=== PATIENT | female | born 1965 | race Caucasian/White ===

== ENCOUNTER 2023-06-23 07:03 | Outpatient (CLI) | payer MEDICARE, SELFPAY | END 2023-06-23 23:59 | LOC: LAB.DROPOF 07-01 07:04 | PROVIDERS: PCP Family Medicine; Visit Provider Family Medicine | DX: I10 Essential (primary) hypertension (principal) | CPT/HCPCS: 80053; 80061; 83036; 84443; 85025 ==

== ENCOUNTER 2023-06-23 13:22 | Outpatient (CLI) | payer MEDICARE, SELFPAY ==
--- NOTE | 2023-06-23 13:23 | CA_ITS ---
FINAL REPORT TECHNIQUE: Color Doppler, duplex Doppler and compression sonography of the left lower extremity deep venous systems was performed. CLINICAL HISTORY: Tender,swollen, pain LLExt FINDINGS: There is no evidence of deep venous thrombosis from the level of the groin to the calf. The veins are patent and compressible. IMPRESSION: No evidence of deep venous thrombosis left lower extremity. Reviewed, Interpreted and Dictated by Felix Shearer III, MD Transcribed by Alejandra Watson Authenticated and [facility]
[2023-06-23 18:13] LABS: Basophils # 0.1 K/mm3 (0-0.2); Basophils % 0.8 % (0.1-2.0); Eosinophils # 0.3 K/mm3 (0.0-0.4); Eosinophils % 2.5 % (0.1-12.0); Hematocrit 34.7 % (37.0-47.0); Hemoglobin 10.8 g/dL (12.2-16.2); Lymphocytes # 2.9 K/mm3 (0.7-4.5); Lymphocytes % 27.1 % (10-50); Mean Corpuscular Hemoglobin 24.5 pg (27.0-31.2); Mean Corpuscular Volume 79.1 fl (81-99); Mean Platelet Volume 9.9 fl (7.4-10.4); Monocytes # 0.4 K/mm3 (0.1-1.0); Monocytes % 3.5 % (1.7-9.3); Neutrophils % 66.1 % (37.0-80.0); Platelet Count 252 K/mm3 (142-424); Red Blood Count 4.39 M/mm3 (4.20-5.40); Red Cell Distribution Width 17.2 % (11.5-17.5); White Blood Count 10.6 K/mm3 (4.8-10.8)
[2023-06-23 18:46] LABS: Alanine Aminotransferase 15 U/L (12-78); Albumin Level 3.8 g/dl (3.5-5.0); Albumin/Globulin Ratio 1.2 (1.1-1.8); Alkaline Phosphatase 139 U/L (38-126); Anion Gap 12.4 mEq/L (5-15); Aspartate Amino Transferase 20 U/L (14-36); Bilirubin,Total 0.6 mg/dl (0.2-1.3); Blood Urea Nitrogen 26 mg/dl (7-17); Calcium 8.9 mg/dl (8.4-10.2); Carbon Dioxide 23 mmol/L (22.0-30.0); Chloride 108 mmol/L (98-107); Chol/HDL Ratio 3.8 (1-3.5); Cholesterol 105 mg/dl (140-200); Estimated Glomerular Filt Rate 39 ml/min (>60); GFR (African American) 47 ML/MIN (>60); Globulin 3.1 g/dL (1.3-3.2); Glucose 95 mg/dl (74-100); HDL Cholesterol 28 mg/dl (40-60); Potassium 4.4 mmoL/L (3.5-5.1); Sodium 139 mmol/L (136-145); Total Protein,Serum 6.9 g/dl (6.3-8.2); Triglycerides 138 mg/dl (30-150); VLDL Cholesterol 28 mg/dL (0-40)
[2023-06-23 19:19] LABS: Thyroid Stimulating Hormone 1.96 uIU/mL (0.465-4.68)
[2023-06-23 20:20] LABS: Hemoglobin A1C 5.7 % (4.0-6.0)
== END 2023-06-23 23:59 ==
PROVIDERS: PCP Family Medicine; Visit Provider Family Medicine
DX: M79.605 Pain in left leg (principal); I10 Essential (primary) hypertension; E11.621 Type 2 diabetes mellitus with foot ulcer; Z79.899 Other long term (current) drug therapy
CPT/HCPCS: 80053; 80061; 83036; 84443; 85025; 93971

== ENCOUNTER 2023-07-07 18:00 | Outpatient (CLI) | payer MEDICARE, SELFPAY ==
[2023-07-07 19:57] LABS: Iron 52 ug/dL (37-170)
[2023-07-07 20:08] LABS: Total Iron Binding Capacity 286 ug/dL (265-497)
== END 2023-07-07 23:59 | disposition home or self-care (01) ==
LOC: LAB.DROPOF 07-08 10:02
PROVIDERS: PCP Family Medicine; Visit Provider Family Medicine
DX: R53.83 Other fatigue (principal); D64.9 Anemia, unspecified
CPT/HCPCS: 83540; 83550

== ENCOUNTER 2023-07-17 10:34 | Outpatient (CLI) | payer MEDICARE, SELFPAY ==
[2023-07-17 10:49] LABS: MANUAL DIFFERENTIAL MANUAL DIFFERENTIAL (MANUAL DIFF)
[2023-07-17 11:17] LABS: Basophils # 0.1 K/mm3 (0-0.2); Eosinophils # 0.2 K/mm3 (0.0-0.4); Eosinophils % 2.7 % (0.1-12.0); Hematocrit 33.1 % (37.0-47.0); Hemoglobin 10.6 g/dL (12.2-16.2); Lymphocytes # 2.1 K/mm3 (0.7-4.5); Lymphocytes % 26.8 % (10-50); Mean Corpuscular HGB Conc 32.2 g/dL (31.8-35.4); Mean Corpuscular Hemoglobin 24.3 pg (27.0-31.2); Mean Corpuscular Volume 75.5 fl (81-99); Mean Platelet Volume 8.5 fl (7.4-10.4); Monocytes # 0.3 K/mm3 (0.1-1.0); Monocytes % 3.5 % (1.7-9.3); Neutrophils # 5.2 K/mm3 (1.8-7.8); Neutrophils % 65.9 % (37.0-80.0); Platelet Count 245 K/mm3 (142-424); Red Blood Count 4.38 M/mm3 (4.20-5.40); Red Cell Distribution Width 17.5 % (11.5-17.5); White Blood Count 7.9 K/mm3 (4.8-10.8)
[2023-07-17 11:20] LABS: INR 1.06 (0.9-1.1); Prothrombin Time 11.4 seconds (10.1-12.5)
[2023-07-17 11:39] LABS: Chloride 111 mmol/L (98-107); Potassium 4.3 mmoL/L (3.5-5.1); Sodium 140 mmol/L (136-145)
[2023-07-17 11:41] LABS: Alanine Aminotransferase 16 U/L (12-78); Aspartate Amino Transferase 23 U/L (14-36); Blood Urea Nitrogen 23 mg/dl (7-17); Estimated Glomerular Filt Rate 39 ml/min (>60); GFR (African American) 47 ML/MIN (>60)
[2023-07-17 11:42] LABS: Albumin Level 3.7 g/dl (3.5-5.0); Albumin/Globulin Ratio 1.2 (1.1-1.8); Alkaline Phosphatase 138 U/L (38-126); Anion Gap 10.3 mEq/L (5-15); Bilirubin,Total 0.7 mg/dl (0.2-1.3); Calcium 9.2 mg/dl (8.4-10.2); Carbon Dioxide 23 mmol/L (22.0-30.0); Globulin 3.1 g/dL (1.3-3.2); Glucose 152 mg/dl (74-100); Iron 46 ug/dL (37-170); Total Protein,Serum 6.8 g/dl (6.3-8.2)
[2023-07-17 11:52] LABS: Total Iron Binding Capacity 300 ug/dL (265-497)
[2023-07-17 12:07] LABS: Gamma Glutamyl Transpeptidase 32 U/L (12-43)
[2023-07-17 12:18] LABS: Ferritin 23.3 ng/ml (11.1-264)
[2023-07-17 16:36] LABS: Eosinophils % 1 % (0-3); Lymphocytes % 28 % (10-50); Monocytes % 1 % (2-9); Neutrophils % 69 % (42-76); Total Cells Counted 100
[2023-07-17 16:37] LABS: Hypochromasia 1+; Microcytosis 1+; Platelet Estimate Normal
[2023-07-18 11:33] LABS: Alpha-1-Antitrypsin 166 mg/dL (101-187); CA 19-9 4 U/mL (0-35); Ceruloplasmin 31.3 mg/dL (19.0-39.0); HBsAg Screen Negative (Negative); HCV Ab Non Reactive (Non Reactive); Hep A Ab, IGM Negative (Negative); Hep B Core Ab, IgM Negative (Negative)
[2023-07-18 14:54] LABS: Endomysial IgA Antibody Negative (Negative); Liver-Kidney Microsomal Ab 1.3 Units (0.0-20.0)
[2023-07-18 15:34] LABS: Actin (Smooth Muscle) Antibody 14 Units (0-19); Deamidated Gliadin Abs, IgA 8 units (0-19); Deamidated Gliadin Abs, IgG 5 units (0-19); Mitochondrial (M2) Antibody <20.0 Units (0.0-20.0); Tissue Transglutaminase IgA Ab <2 U/mL (0-3); Tissue Transglutaminase IgG Ab <2 U/mL (0-5)
[2023-07-23 09:13] LABS: Reticulin IgA Antibody Negative titer (Neg:<1:2.5)
== END 2023-07-17 23:59 | disposition home or self-care (01) ==
LOC: LAB 10:36
PROVIDERS: PCP Family Medicine; Visit Provider Nurse Practitioner
DX: N18.30 Chronic kidney disease, stage 3 unspecified (principal); K74.60 Unspecified cirrhosis of liver; R10.9 Unspecified abdominal pain; Z86.010 Personal history of colon polyps; R16.0 Hepatomegaly, not elsewhere classified
CPT/HCPCS: 36415; 80053; 81256; 82103; 82105; 82390; 82728; 82977; 83516; 83540; 83550; 85007; 85014; 85018; 85048; 85049; 85610; 86225; 86235; 86255; 86256; 86301; 86376

== ENCOUNTER 2023-11-05 07:43 | Day surgery (SDC) | payer MEDICARE, SELFPAY ==
[2023-11-03 11:30] VITALS: BMI 37.8
[2023-11-05] VITALS (8 sets, daily range): BP systolic 107–129; BP diastolic 49–86; PULSE 70–78; RESP 16–18; TEMP 36.1–36.4; O2SAT 94–98; BMI 37.4
[2023-11-05] MEDS: LACTATED RINGERS 1000ML 1,000 ML 100 ML IV (10:01)
--- NOTE | 2023-11-05 10:44 | P.PNANES_ITS ---
[facility] Disclaimer: The information contained in this section may have been updated after the patient was seen, as this information can be updated by other users. Medical History UTI (urinary tract infection) Hypertension Bipolar 1 disorder Anemia Diabetes mellitus Arthritis Chronic pain COPD (chronic obstructive pulmonary disease) Cirrhosis of liver not due to alcohol Kidney disease, chronic, stage III (GFR 30-59 ml/min) Charcot's joint of foot Surgical History Hx of cholecystectomy Hx of hysterectomy, total Hx of foot surgery Hx of neck surgery History of back surgery Family History Grandmother Cancer Pt states, she has a family hx of Boobie or stomach cx, she can't remember. Mother Cancer Father Coronary artery disease Other Alcoholism Anemia Bleeding disorder Diabetes FHx: mental illness Heart attack Hypertension Kidney disease Stroke Thyroid disorder Social History (Updated 11/05/23 @ 09:00 by Naz Magallanes RN) Smoking Status: Never smoker alcohol intake: never substance use type: denies use current occupational status: disabled Travel in the last 8 weeks: None caffeine: Yes [facility] Anesthesia Checklist Patient Identification Patient Identification: Arm Band, Family and Verbal (Name & ) Structural Data Admitted From: Home Planned Operative Procedure/s: EGD/Colonoscopy Consent for Planned Operative Procedure(s) Verified: Yes Verified Documents: Surgical Consent and History and Physical NPO Status Verified Time NPO: 06:00 Chart Verification Results Verified: CBC and BMP Additional verifications Fingerstick Blood Glucose: 86 Patient : No Anesthesia Reactions: No Cardiovascular Assessment Heart Sounds: S1 & S2 Pulse Rhythm: Irregular Peripheral Edema: No Airway Assessment Mallampati Score:: Class II C-Spine Mobility Assessed: Yes TMJ Mobility Assessed: Yes Dentition: Edentulous Neurological Assessment Level of Consciousness: Awake, Alert, Appropriate and Follows Commands Hx Seizures: No Numbness or tingling in extremities: No Anesthesia Plan Anesthesia Risk discussed: Yes Anesthesia Plan: Verified ASA Class: III Anesthesia Type: MAC
--- NOTE | 2023-11-05 11:14 | HMH.SCOPE ---
Procedure: Date: 11/05/23 Patient Date of :: 1965 Procedure Performed:: EGD Indications:: The patient is a 58-year-old who presents for EGD for gastroesophageal variceal screening for a history of cirrhosis. 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 Performing Provider:: Dennis Chavarria MD Referring Provider:: Mikki Ngo APRN Sedation:: See RN record Procedure:: The gastroscope was gently passed through the incisoral orifice into the oral cavity and under direct visualization the esophagus was intubated. The endoscope was passed down the esophagus, through the stomach, and into the duodenum. Color, texture, mucosa, and anatomy of the esophagus, stomach, and duodenum were carefully examined with the scope. Findings:: The esophagus appeared normal. There were scattered fundic gland polyps in the stomach, some appeared inflammatory. The largest polyp (greater than 10 mm in size) was removed by hot snare polypectomy. There was persistent oozing of blood after polypectomy. Hemostasis was achieved by deployment of two endoclips at the polypectomy site. There was inflammation characterized by erythema in the stomach. Biopsies were obtained with a cold forceps for histology. The examined duodenum appeared normal. Impression: Gastritis Gastric polyps Recommendations:: Await pathology result Repeat EGD in 3 years, sooner if clinically Follow-up with referring provider in office as previously scheduled Complications:: None Estimated blood obtained (mL): 0 Colonoscopy Component Colonoscopy Component Was a colonoscopy performed during today's procedure?: No
--- NOTE | 2023-11-05 11:19 | P.PCN_ITS ---
Procedure: Date: 11/05/23 Patient Date of :: 1965 Procedure Performed:: Colonoscopy Indications:: The patient is a 58-year-old who presents for surveillance colonoscopy for having a history of polyps in the past. The patient reports last colonoscopy to be approximately 2 to 3 years ago completed in [place]. Previous colonoscopy record is unavailable for review at this time. Performing Provider:: Dennis Chavarria MD Referring Provider:: Mikki Ngo APRN Sedation:: See RN records Procedure:: After placing the patient in the left lateral decubitus position, the colonoscopy was gently inserted into the rectum and under direct visualization advanced to the sigmoid colon. Quality of the bowel preparation was inadequate for surveillance purposes and the procedure was aborted. Findings:: There was a large amount of solid stool in the rectal vault and sigmoid colon. The procedure was aborted Recommendations:: Recommend repeat colonoscopy with 2 days liquid diet and extended bowel preparation Complications:: None Estimated blood obtained (mL): 0 Colonoscopy Component Colonoscopy Component Was a colonoscopy performed during today's procedure?: Yes Recommended follow up colonoscopy of at least 10 years?: Yes
--- NOTE | 2023-11-05 11:21 | P.PNANES_ITS ---
[facility] Anesthesia Record Part I Anesthesia Record I Intake, IV Amount: 400 Hydration: Adequate Estimated blood loss (mL): 1 Urine output (mL): 0 Blood Products used (#): none Blood Pressure: 107/64 SaO2: 94 Pulse Rate: 71 Airway Patency: Patent Respiratory Rate: 16 Temperature: 97.2 F Patient is:: Drowsy and Stable Stable to PACU at:: 11:26
[2023-11-05 11:28] LABS: POC Glucose,Bedside 95 (70-110)
[2023-11-07 06:37] LABS: POC Glucose,Bedside 86 (70-110)
== END 2023-11-05 10:51 | disposition home or self-care (01) ==
PROVIDERS: PCP Family Medicine; Visit Provider Internal Medicine
PROC: 0DJ08ZZ Inspection of Upper Intestinal Tract, Via Natural or Artificial Opening Endoscopic (ICD-10-PCS; CPT 43235; principal; 2023-11-05 11:00)
DX: K31.7 Polyp of stomach and duodenum (principal); L53.9 Erythematous condition, unspecified; K29.70 Gastritis, unspecified, without bleeding; Z86.010 Personal history of colon polyps; E11.8 Type 2 diabetes mellitus with unspecified complications
CPT/HCPCS: 43239; 43251; 45378; 82962; J7120

== ENCOUNTER 2023-12-31 14:30 | Outpatient (CLI) | payer MEDICARE, SELFPAY ==
[2023-12-31 18:27] LABS: Basophils # 0.1 K/mm3 (0-0.2); Basophils % 1.2 % (0.1-2.0); Eosinophils # 0.3 K/mm3 (0.0-0.4); Eosinophils % 3.9 % (0.1-12.0); Hematocrit 25.2 % (37.0-47.0); Hemoglobin 7.8 g/dL (12.2-16.2); Lymphocytes # 2.6 K/mm3 (0.7-4.5); Lymphocytes % 39.8 % (10-50); Mean Corpuscular HGB Conc 30.8 g/dL (31.8-35.4); Mean Corpuscular Hemoglobin 22.7 pg (27.0-31.2); Mean Corpuscular Volume 73.6 fl (81-99); Mean Platelet Volume 9.3 fl (7.4-10.4); Monocytes # 0.4 K/mm3 (0.1-1.0); Monocytes % 5.3 % (1.7-9.3); Neutrophils # 3.3 K/mm3 (1.8-7.8); Neutrophils % 49.8 % (37.0-80.0); Platelet Count 325 K/mm3 (142-424); Red Blood Count 3.42 M/mm3 (4.20-5.40); Red Cell Distribution Width 16.7 % (11.5-17.5); White Blood Count 6.5 K/mm3 (4.8-10.8)
[2023-12-31 19:24] LABS: Iron 37 ug/dL (37-170)
[2023-12-31 19:47] LABS: Total Iron Binding Capacity 330 ug/dL (265-497)
== END 2023-12-31 23:59 | disposition home or self-care (01) ==
LOC: LAB.DROPOF 01-01 12:22
PROVIDERS: PCP Family Medicine; Visit Provider Family Medicine
DX: I10 Essential (primary) hypertension (principal); E61.1 Iron deficiency
CPT/HCPCS: 83540; 83550; 85025

== ENCOUNTER 2024-01-12 12:44 | Outpatient (CLI) | payer MEDICARE, SELFPAY ==
[2024-01-12 12:50] VITALS: BP 128/38; PULSE 83; RESP 18; TEMP 36.3; O2SAT 97; BMI 35.2
[2024-01-12] MEDS: SODIUM CHLORIDE 0.9% 50ML BAG 50 ML IV (13:02)
[2024-01-12] MEDS: SODIUM CHLORIDE 0.9% 10ML FLUSH SYRINGE 10 ML IV (13:02)
[2024-01-12] MEDS: IRON SUCROSE COMPLEX 200 MG in 0.9 % SODIUM CHLORIDE 100 ML 220 MG IV (13:02)
[2024-01-12] MEDS: 0.9 % SODIUM CHLORIDE 1000ML 1,000 ML 999 ML IV (13:37)
[2024-01-12 14:27] VITALS: BP 123/59; PULSE 81; RESP 18; TEMP 36.4; O2SAT 100
== END 2024-01-12 14:30 | disposition home or self-care (01) ==
LOC: INF 12:45
PROVIDERS: PCP Family Medicine; Visit Provider Family Medicine
DX: D64.9 Anemia, unspecified (principal)
CPT/HCPCS: 96360; 96361; 96365; 96367; J1756; J7030

== ENCOUNTER 2024-01-15 21:25 | Outpatient (CLI) | payer MEDICARE, SELFPAY ==
[2024-01-15 21:35] LABS: Adenovirus F 40/41, stool Not Detected (NotDetected); Astrovirus Not Detected (NotDetected); Campylobacter Not Detected (NotDetected); Cryptosporidium Not Detected (NotDetected); Cyclospora Cayetanesis Not Detected (NotDetected); Entamoeba histolytica Not Detected (NotDetected); Enteroaggregative E coli Not Detected (NotDetected); Enteropathogenic E coli Not Detected (NotDetected); Enterotoxigenic E coli Not Detected (NotDetected); Giardia lamblia Not Detected (NotDetected); Norovirus Not Detected (NotDetected); Plesimonas Shigalloides, PCR Not Detected (NotDetected); Rotavirus A Not Detected (NotDetected); Salmonella, PCR Not Detected (NotDetected); Sapovirus Not Detected (NotDetected); Shiga-like toxin E coli Not Detected (NotDetected); Shigella Enterovasive E coli Not Detected (NotDetected); Vibrio Cholerae Not Detected (NotDetected); Vibrio, PCR Not Detected (NotDetected); Yersinia Entercolitica, PCR Not Detected (NotDetected)
[2024-01-15 23:59] LABS: Clostridium Difficile A/B, PCR Detected (NotDetected)
== END 2024-01-15 23:59 | disposition home or self-care (01) ==
LOC: LAB 21:26
PROVIDERS: PCP Family Medicine; Visit Provider Family Medicine
DX: R19.7 Diarrhea, unspecified (principal)
CPT/HCPCS: 87506

== ENCOUNTER 2024-01-19 12:31 | Outpatient (CLI) | payer MEDICARE, SELFPAY ==
[2024-01-19 12:50] VITALS: BP 142/69; PULSE 104; RESP 18; O2SAT 97
[2024-01-19] MEDS: IRON SUCROSE COMPLEX 200 MG in 0.9 % SODIUM CHLORIDE 100 ML 220 MG IV (12:50)
[2024-01-19 13:35] VITALS: BP 138/73; PULSE 86; RESP 18; O2SAT 99
== END 2024-01-19 23:59 | disposition home or self-care (01) ==
PROVIDERS: PCP Family Medicine; Visit Provider Family Medicine
DX: D64.9 Anemia, unspecified (principal)
CPT/HCPCS: 96365; J1756

== ENCOUNTER 2024-01-23 10:01 | Outpatient (CLI) | payer MEDICARE, SELFPAY ==
[2024-01-23 18:25] LABS: Basophils # 0.1 K/mm3 (0-0.2); Basophils % 0.8 % (0.1-2.0); Eosinophils # 0.2 K/mm3 (0.0-0.4); Hematocrit 28.9 % (37.0-47.0); Hemoglobin 8.8 g/dL (12.2-16.2); Lymphocytes % 25.6 % (10-50); Mean Corpuscular HGB Conc 30.4 g/dL (31.8-35.4); Mean Corpuscular Hemoglobin 23.2 pg (27.0-31.2); Mean Corpuscular Volume 76.2 fl (81-99); Mean Platelet Volume 9.8 fl (7.4-10.4); Monocytes # 0.4 K/mm3 (0.1-1.0); Monocytes % 4.9 % (1.7-9.3); Neutrophils # 5.1 K/mm3 (1.8-7.8); Neutrophils % 65.7 % (37.0-80.0); Platelet Count 212 K/mm3 (142-424); Red Blood Count 3.79 M/mm3 (4.20-5.40); Red Cell Distribution Width 20.4 % (11.5-17.5); White Blood Count 7.7 K/mm3 (4.8-10.8)
[2024-01-23 19:17] LABS: Iron 46 ug/dL (37-170)
[2024-01-23 19:26] LABS: Total Iron Binding Capacity 289 ug/dL (265-497)
== END 2024-01-23 23:59 | disposition home or self-care (01) ==
LOC: LAB.DROPOF 01-24 09:31
PROVIDERS: PCP Family Medicine; Visit Provider Family Medicine
DX: E61.1 Iron deficiency (principal); I10 Essential (primary) hypertension
CPT/HCPCS: 83540; 83550; 85025

== ENCOUNTER 2024-01-26 12:29 | Outpatient (CLI) | payer MEDICARE, SELFPAY ==
[2024-01-26 12:52] VITALS: BP 114/64; PULSE 75; RESP 16; TEMP 36.6; O2SAT 98
[2024-01-26] MEDS: SODIUM CHLORIDE 0.9% 50ML BAG 50 ML IV (12:52)
[2024-01-26] MEDS: IRON SUCROSE COMPLEX 200 MG in 0.9 % SODIUM CHLORIDE 100 ML 220 MG IV (12:52)
[2024-01-26] MEDS: SODIUM CHLORIDE 0.9% 10ML FLUSH SYRINGE 10 ML IV (12:52)
[2024-01-26 13:28] VITALS: BP 115/64; PULSE 77; RESP 16; TEMP 36.6; O2SAT 98
== END 2024-01-26 13:30 | disposition home or self-care (01) ==
LOC: INF 12:31
PROVIDERS: PCP Family Medicine; Visit Provider Family Medicine
DX: D50.9 Iron deficiency anemia, unspecified (principal)
CPT/HCPCS: 96365; J1756

== ENCOUNTER 2024-02-02 12:37 | Outpatient (CLI) | payer MEDICARE, SELFPAY ==
[2024-02-02] MEDS: SODIUM CHLORIDE 0.9% 50ML BAG 50 ML IV (12:51)
[2024-02-02] MEDS: IRON SUCROSE COMPLEX 200 MG in 0.9 % SODIUM CHLORIDE 100 ML 220 MG IV (12:51)
[2024-02-02 12:52] VITALS: BP 113/67; PULSE 77; RESP 16; TEMP 36.9; O2SAT 99
[2024-02-02] MEDS: SODIUM CHLORIDE 0.9% 10ML FLUSH SYRINGE 10 ML IV (12:52)
[2024-02-02 13:30] VITALS: BP 122/62; PULSE 74; RESP 16; TEMP 36.9; O2SAT 98
== END 2024-02-02 13:32 | disposition home or self-care (01) ==
LOC: INF 12:38
PROVIDERS: PCP Family Medicine; Visit Provider Family Medicine
DX: D50.9 Iron deficiency anemia, unspecified (principal)
CPT/HCPCS: 96365; J1756

== ENCOUNTER 2024-02-09 12:12 | Outpatient (CLI) | payer MEDICARE, SELFPAY ==
[2024-02-09 12:16] VITALS: BP 128/64; PULSE 68; RESP 18; TEMP 36.1; O2SAT 97
[2024-02-09] MEDS: SODIUM CHLORIDE 0.9% 10ML FLUSH SYRINGE 10 ML IV (12:36)
[2024-02-09] MEDS: SODIUM CHLORIDE 0.9% 50ML BAG 50 ML IV (12:36)
[2024-02-09] MEDS: IRON SUCROSE COMPLEX 200 MG in 0.9 % SODIUM CHLORIDE 100 ML 220 MG IV (12:36)
[2024-02-09 13:25] VITALS: BP 132/68; PULSE 73; RESP 18; O2SAT 97
== END 2024-02-09 13:25 | disposition home or self-care (01) ==
LOC: INF 12:13
PROVIDERS: PCP Family Medicine; Visit Provider Family Medicine
DX: D50.9 Iron deficiency anemia, unspecified (principal)
CPT/HCPCS: 96365; J1756

== ENCOUNTER 2024-02-23 19:10 | Outpatient (CLI) | payer MEDICARE, SELFPAY ==
[2024-02-23 19:46] LABS: Basophils # 0.1 K/mm3 (0-0.2); Basophils % 0.8 % (0.1-2.0); Eosinophils # 0.3 K/mm3 (0.0-0.4); Eosinophils % 3.3 % (0.1-12.0); Hemoglobin 11.6 g/dL (12.2-16.2); Lymphocytes # 2.4 K/mm3 (0.7-4.5); Lymphocytes % 26.4 % (10-50); Mean Corpuscular HGB Conc 33.1 g/dL (31.8-35.4); Mean Corpuscular Volume 75.5 fl (81-99); Mean Platelet Volume 9.4 fl (7.4-10.4); Monocytes # 0.4 K/mm3 (0.1-1.0); Monocytes % 3.9 % (1.7-9.3); Neutrophils % 65.6 % (37.0-80.0); Platelet Count 216 K/mm3 (142-424); Red Blood Count 4.64 M/mm3 (4.20-5.40); White Blood Count 9.2 K/mm3 (4.8-10.8)
[2024-02-23 20:50] LABS: Alanine Aminotransferase 21 U/L (12-78); Albumin Level 3.7 g/dl (3.5-5.0); Albumin/Globulin Ratio 1.2 (1.1-1.8); Alkaline Phosphatase 134 U/L (38-126); Aspartate Amino Transferase 25 U/L (14-36); Bilirubin,Total 0.5 mg/dl (0.2-1.3); Blood Urea Nitrogen 19 mg/dl (7-17); Calcium 8.9 mg/dl (8.4-10.2); Carbon Dioxide 24 mmol/L (22.0-30.0); Chloride 105 mmol/L (98-107); Estimated Glomerular Filt Rate 46 ml/min (>60); GFR (African American) 56 ML/MIN (>60); Glucose 212 mg/dl (74-100); Sodium 137 mmol/L (136-145); Total Protein,Serum 6.7 g/dl (6.3-8.2)
[2024-02-23 22:22] LABS: Iron 51 ug/dL (37-170)
[2024-02-23 22:45] LABS: Total Iron Binding Capacity 286 ug/dL (265-497)
[2024-02-23 23:21] LABS: Hemoglobin A1C 6.5 % (4.0-6.0)
== END 2024-02-23 23:59 | disposition home or self-care (01) ==
LOC: LAB.DROPOF 19:11
PROVIDERS: Nurse Practitioner; PCP Family Medicine; Visit Provider Family Medicine
DX: K74.60 Unspecified cirrhosis of liver (principal); R16.1 Splenomegaly, not elsewhere classified; E11.9 Type 2 diabetes mellitus without complications; G89.29 Other chronic pain; I10 Essential (primary) hypertension
CPT/HCPCS: 80053; 83036; 83540; 83550; 85025